=== PATIENT | female | born 2000 | race Asian ===

== ENCOUNTER 2022-09-15 05:20 | Emergency (ER) | payer OTHER ==
[~2022-09-15] VITALS: Ht 154.9 cm; Wt 52.0 kg
[2022-09-15 05:28] VITALS: BP 108/74
[2022-09-15] MEDS ORDERED: TRAMADOL 50MG TABLET PO ONE (08:15)
[2022-09-15] MEDS ORDERED: IBUPROFEN 600MG TABLET PO ONE (08:15)
[2022-09-15] MEDS ORDERED: ONDANSETRON 4MG ODT PO ONE ×2 (08:30→11:45)
[2022-09-15 09:28] LABS: CLARITY URINE CLEAR (CLEAR); COLOR URINE YELLOW (YELLOW); KETONES URINE 3+ (NEGATIVE); LEUKOCYTE ESTERASE URINE NEGATIVE (NEGATIVE); NITRITE URINE NEGATIVE (NEGATIVE); OCCULT BLOOD URINE NEGATIVE (NEGATIVE); PH URINE 7.5 (4.5-8.0); PROTEIN URINE TRACE (NEGATIVE); SPECIFIC GRAVITY URINE 1.024 (1.005-1.030); UROBILINOGEN URINE 0.2 E.U./dL (0.2-1.0)
[2022-09-15] MEDS ORDERED: HYDROCODONE/ACETAMINOPHEN 5/325MG TABLET PO ONE (10:00)
[2022-09-15] MEDS ORDERED: IBUP-2028 MT (12:08)
[2022-09-15] MEDS ORDERED: HYDR-4001 MT (12:09)
[2022-09-15] MEDS ORDERED: ONDA4TAB11 PO (12:09)
== END 2022-09-15 12:24 | disposition home or self-care (01) ==
LOC: ER 05:20
DX: N94.6 Dysmenorrhea, unspecified (principal); N83.201 Unspecified ovarian cyst, right side
CPT/HCPCS: 76830; 76856; 81003; 81025; 99284; Q0162